=== PATIENT | male | born 1980 | race Two or more races ===

== ENCOUNTER 2019-05-01 18:33 | Inpatient (IN) | payer OTHER ==
[2019-05-01] MEDS ORDERED: SODIUM CHLORIDE 0.9% 500 ML INFUS.BAG IV ONE (19:12)
[2019-05-01] MEDS ORDERED: FOLIC ACID INJECTION - 1 MG, THIAMINE HCL 100 MG, MULTIVIT INJECTION ADULT 10 ML in SOD... IVPB ONE (19:12)
[2019-05-01] MEDS ORDERED: chlordiazePOXIDE HCL 25 MG CAPSULE PO ONE ×2 (19:17→21:14)
--- NOTE | 2019-05-01 19:17 | PDOC ---
History of Present Illness - General Chief Complaint: Alcohol intoxication Stated Complaint: FOR DETOX Time Seen by Provider: 05/01/19 19:08 History Source: Patient Exam Limitations: No Limitations - History of Present Illness Initial Comments: Anjum Ponce is a 38 yo M who denies having any pmh presents to the ER stating he has been drinking too much alcohol recently and wants to be admitted to a de-tox center. The patient states he has recently gone on a judge over the past month and now it has become too much to handle. He reports drinking around two 750 Ml bottles of tequila daily. The patient states he has had multiple withdrawal episodes in the past but he denies any seizures, hallucinations, or delerium tremens. Patient is alert and oriented x3. He denies having a headache. Denies light appearing too bright, or seeing different colors or visual hallucinations. Denies hypersensitivity to sounds, denies auditory hallucinations. Denies itching, pins and needles, abnormal sensations, burning/numbness, or bugs crawling under skin. Denies being agitated. Patient endorses feeling increased anxiety for past 2 days. Patient endorses significant bouts of sweats all over including forehead. Patient states his hands and lips are shaking more than normal. Patient endorses significant nausea but no emesis. PCP: Dr. Bojorquez at [facility] Hx: Drinks around 1.5 L of tequila daily. Smokes occasional cigarettes and marijuana. PSH: None reported Allergies: NKA, NKDA Past History - Past Medical History Allergies/Adverse Reactions: Allergies Allergy/AdvReac Type Severity Reaction Status Date / Time No Known Allergies Allergy Verified 05/01/19 18:59 COPD: No - Suicide/Smoking/Psychosocial Hx Smoking History: Current every day smoker Have you smoked in the past 12 months: Yes Number of Cigarettes Smoked Daily: 20 Information on smoking cessation initiated: No Hx Alcohol Use: Yes Drug/Substance Use Hx: No Review of Systems - Review of Systems Able to Perform ROS?: Yes Comments:: CONSTITUTIONAL: Absent: fever, no chills, no fatigue EYES: Absent: visual changes ENT: Absent: ear pain, no sore throat CARDIOVASCULAR: Absent: chest pain, no palpitations RESPIRATORY: Absent: cough, no SOB GI: Present: Nausea Absent: abdominal pain, no vomiting, no constipation, no diarrhea GENITOURINARY: Absent: dysuria, no frequency, no hematuria MUSKULOSKELETAL: Absent: back pain, no arthralgia, no myalgia SKIN: Absent: rash NEURO: Absent: headache *Physical Exam - Vital Signs Last Vital Signs Temp Pulse Resp BP Pulse Ox 98.6 F 115 H 20 138/93 93 L 05/01/19 18:59 05/01/19 18:59 05/01/19 18:59 05/01/19 18:59 05/01/19 18:59 - Physical Exam Comments: GENERAL: Well-appearing, well-nourished. Mild distress. HEENT: Mild tongue fasciculations. Normocephalic, atraumatic. PERRL, EOM intact. CARDIOVASCULAR: Tachycardic rate. Normal S1, S2. Regular rhythm. PULMONARY: No evidence of respiratory distress. Lungs clear to auscultation bilaterally. No wheezing, rales or rhonchi. ABDOMEN: Soft, non-distended, non-tender. EXTREMITIES: Normal ROM in all four extremities. No gross deformities. SKIN: Warm, diaphoretic. No rash NEUROLOGICAL: Alert, awake, appropriate. Cranial nerves 2-12 intact. No deficits to light touch in face, upper extremities and lower extremities. No motor deficits in the in face, upper extremities and lower extremities. Normal speech. Gait is normal without ataxia. ED Treatment Course - LABORATORY CBC & Chemistry Diagram: 05/02/19 07:40 05/02/19 07:40 - RADIOLOGY Radiograph Interpretation: RUQ US: HISTORY PROVIDED: Rule out fatty liver. Real time examination of the abdomen demonstrates the following: The gallbladder is normal in size and free of calculi with no evidence of intra or extrahepatic biliary duct dilatation. There is a 5 mm polyp adherent to the gallbladder wall. The liver is slightly enlarged measuring 18.1 cm in craniocaudad dimension. It is mildly hyperechoic in texture consistent with diffuse fatty infiltration. No discrete intrahepatic masses are identified. Hepatopedal flow is documented within the main portal vein. The pancreas is poorly visualized due to overlying bowel gas. There is no evidence of hydronephrosis or acute abnormalities of the right kidney. There is no evidence of AAA. The IVC is patent. IMPRESSION: Gallbladder polyp and mild diffuse fatty infiltration of the liver. Medical Decision Making - Medical Decision Making Anjum Ponce is a 38 yo M who denies having any pmh presents to the ER stating he has been drinking too much alcohol recently and wants to be admitted to a de-tox center. The patient states he has recently gone on a judge over the past month and now it has become too much to handle. He reports drinking around two 750 Ml bottles of tequila daily. The patient states he has had multiple withdrawal episodes in the past but he denies any seizures, hallucinations, or delerium tremens. Patient is alert and oriented x3. He denies having a headache. Denies light appearing too bright, or seeing different colors or visual hallucinations. Denies hypersensitivity to sounds, denies auditory hallucinations. Denies itching, pins and needles, abnormal sensations, burning/numbness, or bugs crawling under skin. Denies being agitated. Patient endorses feeling increased anxiety for past 2 days. Patient endorses significant bouts of sweats all over including forehead. Patient states his hands and lips are shaking more than normal. Patient endorses significant nausea but no emesis. Vital Signs Period Temp Pulse Resp BP Sys/Zhang Pulse Ox Last 24 Hr 98.6 F 115 20 138/93 93 - Tachycardic DDx IBNLT: Alcohol intoxication, more likely withdrawal, dehydration, hangover, electrolyte/metabolic disturbance, wernicke encephelopathy vs korsakoff Plan: Labs, Urine, IV hydration, EKG, Banana bag, Admit to hospital for withdrawal. EKG: Sinus tachycardia, rate of 101, frequent PVC's, no ST elevations or depressions, TWI in lead V2, V1, aVR. No prior for comparison. Labs: Elevated Cr suggesting GHADA, elevated LFT's, alcohol level greater than 300. Urine: Unremarkable. RUQ US: HISTORY PROVIDED: Rule out fatty liver. Real time examination of the abdomen demonstrates the following: The gallbladder is normal in size and free of calculi with no evidence of intra or extrahepatic biliary duct dilatation. There is a 5 mm polyp adherent to the gallbladder wall. The liver is slightly enlarged measuring 18.1 cm in craniocaudad dimension. It is mildly hyperechoic in texture consistent with diffuse fatty infiltration. No discrete intrahepatic masses are identified. Hepatopedal flow is documented within the main portal vein. The pancreas is poorly visualized due to overlying bowel gas. There is no evidence of hydronephrosis or acute abnormalities of the right kidney. There is no evidence of AAA. The IVC is patent. IMPRESSION: Gallbladder polyp and mild diffuse fatty infiltration of the liver. Disposition: Admit to hospital for alcohol withdrawal, GHADA, elevated LFT's. - Patient can safely be discharged and referred to [facility] after a 1-2 day hospital stay and medical clearance. *DC/Admit/Observation/Transfer Diagnosis at time of Disposition: Alcohol withdrawal, Elevated creatine kinase, Elevated LFTs, GHADA (acute kidney injury) - Discharge Dispostion Condition at time of disposition: Stable Decision to Admit order: Yes - Referrals - Patient Instructions - Post Discharge Activity CIWA Score Nausea/Vomitin-Int. Nausea w/Dry Heave Muscle Tremors: 4-Moderate,w/Arms Extend Anxiety: 4-Mod. Anxious/Guarded Agitation: 3 Paroxysmal Sweats: 4-Forehead w/Sweat Beads Orientation: 0-Oriented Tacttile Disturbances: 0-None Auditory Disturbances: 0-None Visual Disturbances: 0-None Headache: 0-None Present CIWA-Ar Total Score: 19 - Admission Criteria OASAS Guidelines: Admission for Medically Managed Detox: Requires at least one of the followin. CIWA greater than 12 2. Seizures within the past 24 hours 3. Delirium tremens within the past 24 hours 4. Hallucinations within the past 24 hours 5. Acute intervention needed for co occurring medical disorder 6. Acute intervention needed for co occurring psychiatric disorder 7. Severe withdrawal that cannot be handled at a lower level of care (continued vomiting, continued diarrhea, abnormal vital signs) requiring intravenous medication and/or fluids 8. Patient presents the following: CIWA greater than 12 Admission Criteria Met: Admission criteria met
[2019-05-01] MEDS ORDERED: chlordiazePOXIDE HCL 25 MG CAPSULE ONE ×2 (19:27→21:23)
[2019-05-01 19:33] LABS: BASO % 0.9 % (0-2.0); HEMATOCRIT 52.4 % (35.4-49); HEMOGLOBIN 17.4 GM/dL (11.7-16.9); LYMPH % 29.4 % (8-40); MCH 29.6 pg (25.7-33.7); MCHC 33.2 g/dl (32.0-35.9); MEAN CELL VOLUME 89.3 fl (80-96); MEAN PLT VOLUME 7.9 fl (7.5-11.1); MONO % 9.6 % (3.8-10.2); NEUT % 55.1 % (42.8-82.8); PLATELET COUNT 268 K/MM3 (134-434); RBC 5.87 M/mm3 (4.00-5.60); WHITE BLOOD COUNT 5.9 K/mm3 (4.0-10.0)
[2019-05-01 19:59] LABS: ALBUMIN 4.3 g/dl (3.4-5.0); BILIRUBIN,TOTAL 1.2 mg/dL (0.2-1); BLOOD UREA NITROGEN 8.8 mg/dL (7-18); CALCIUM 8.8 mg/dL (8.5-10.1); CREATININE 1.4 mg/dL (0.55-1.3); POTASSIUM 4.6 mmol/L (3.5-5.1); TOT PROT 7.7 g/dl (6.4-8.2)
--- NOTE | 2019-05-01 20:27 | PDOC ---
Documentation entered by Sarita Valencia SCRIBE, acting as scribe for Marina Gibbs MD. Marina Gibbs MD: This documentation has been prepared by the wendyibe, Sarita Valencia SCRIBE, under my direction and personally reviewed by me in its entirety. I confirm that the documentation accurately reflects all work, treatment, procedures, and medical decision making performed by me. Attending Attestation - Resident Resident Name: Robert Drake - ED Attending Attestation I have performed the following: I have examined & evaluated the patient, The case was reviewed & discussed with the resident, I agree w/resident's findings & plan, Exceptions are as noted - HPI HPI: 05/01/19 20:26 The patient is a 38-year-old male with no reported past medical history presents to the emergency department accompanied with friends complaining of alcohol intoxication seeking detox and dehydration. History obtained by friends and the patient. The patient and his friends went on a trip during the April 22 weekend to [place]. The friends state starting April 24, and hes been consuming a little over 1L of alcohol. The patient reports he had the same amount of alcohol today. The patient reports prior to April 24, his last drink was about 8 months ago. The patient denies prior detox admissions. The patient reports an additional complaint of dehydration and chest pain. Denies shortness of breath. The patient denies the use of marijuana or other drugs, however to Dr. Drake the patient reported prior use of marijuana. - Physicial Exam PE: 05/01/19 20:15 GENERAL: Awake, alert and oriented. The patient is in no acute distress. ENT: Ears normal, nares patent, oropharynx clear without exudates. +dry mucous membranes. NECK: Normal range of motion, supple, no nuchal rigidity LUNGS: Breath sounds equal, clear to auscultation bilaterally. No wheezes, and no crackles. HEART: +tachycardia. Regular rhythm, normal S1 and S2 without murmurs, rubs or gallops. ABDOMEN: Soft, nontender, normoactive bowel sounds. No guarding, no rebound. No masses palpable. EXTREMITIES: No lower extremity edema. Normal range of motion, no edema. NEUROLOGICAL: No ataxia, no slurred speech. Answering all questions. Cranial nerves II through XII grossly intact. Normal speech. No focal neurological deficits. SKIN: Warm, Dry, normal turgor, no rashes or lesions noted. - Medical Decision Making 05/01/19 20:16 Mr. Ponce is a 38 yo M who presents to the ER with friends due to alcohol intoxication The patient reports to me that he began drinking since he went on a "guys trip" to [place] (April 24 through April 27) He has had 1 L of various types of alcohol daily Upon returning from his trip, the patient states that he had continued to drink this way He denies drug or marijuanna use to me To Dr Henson, he states that he has been drinking heavily for the past 2 months , smoking cigarettes and using Marijuanna The patient state he is here for hydration His friends would like him to go to Detox Pt denies seizures or tremulousness if he does not drink Has "blacked out" while drinking He denies vomiting, diarrhea On exam Pt is tremulous, awake and alert, answering my questions appropriately RRR CTA No abdominal tenderness EKG: ST rate of 101 bpm, axis nml, intervals nml, (+) PVCs Will hydrate/Librium Will replete electrolytes Will re assess 05/01/19 20:31 Laboratory Tests 05/01/19 05/01/19 05/01/19 19:20 19:20 19:20 WBC 5.9 Hgb 17.4 H Hct 52.4 H Plt Count 268 BUN 8.8 Creatinine 1.4 H Total Bilirubin 1.2 H AST 322 H ALT 242 H Salicylates < 1.7 L Acetaminophen < 2.0 L Alcohol, Quantitative 322.4 H 05/01/19 22:01 Pt presents to the ER s/p binge drinking Tremulous when first examined (alcohol level 322!) Will admit Call placed to Hospitalist clinical impression: binge drinking, initial presentation early alcohol withdrawal, initial presentation
[2019-05-01 20:37] LABS: INR 0.99 (0.83-1.09); PROTHROMBIN TIME (PATIENT) 11.7 SEC (9.7-13.0)
[2019-05-01 20:53] LABS: EPI CELLS 0.4 /HPF (0-5/HPF); HYALINE CASTS 1 /lpf (0-8); URINE APPEARANCE CLEAR; URINE BACTERIA 0.7 /hpf (NEGATIVE); URINE BILIRUBIN NEGATIVE (NEGATIVE); URINE COLOR YELLOW; URINE GLUCOSE (UA) NEGATIVE (NEGATIVE); URINE KETONE NEGATIVE (NEGATIVE); URINE LEUK ESTERASE NEGATIVE (NEGATIVE); URINE NITRITE NEGATIVE (NEGATIVE); URINE PROTEIN TRACE (NEGATIVE); URINE RBC 1 /hpf (0-4); URINE WBC 1 /hpf (0-5)
[2019-05-01 21:02] LABS: COCAINE, UR NEGATIVE ng/ml (CUTOFF=300); METHADONE, UR NEGATIVE ng/ml (CUTOFF=300); OPIATES, URI NEGATIVE ng/ml (CUTOFF=300); PHENCYCLIDINE,URINE NEGATIVE ng/ml (CUTOFF=25); URINE AMPHETAMINES NEGATIVE ng/ml (CUTOFF=500); URINE BARBITURATES NEGATIVE ng/ml (CUTOFF=200); URINE BENZODIAZEPINES NEGATIVE ng/ml (CUTOFF=200)
[2019-05-01] MEDS ORDERED: LORazepam 2 MG/ML SDV VIAL ONE (21:23)
--- NOTE | 2019-05-01 22:48 | PN ---
Teaching Attending Note ATTENDING PHYSICIAN STATEMENT I saw and evaluated the patient. I reviewed the resident's note and discussed the case with the resident. I agree with the resident's findings and plan as documented. SUBJECTIVE: OBJECTIVE: ASSESSMENT AND PLAN:
--- NOTE | 2019-05-01 22:55 | PN ---
Teaching Attending Note Name of Resident: Danna Chinchilla ATTENDING PHYSICIAN STATEMENT I saw and evaluated the patient. I reviewed the resident's note and discussed the case with the resident. I agree with the resident's findings and plan as documented. Patient with a history of alcohol abuse presents to the ER for detox; hasn't had seizures or been intubated but has been in WD. Last drink earlier with + EtOH. Please see resident note for further historical information VS noted per chart NAD, AAO, resting in bed. CIWA <7 NC AT EOMI PERRLA Tachycardic, s1/2 Lungs CTAB, w/ sym exp NT ND +BS CN2-12 wnl, no fnd Normal mood, appropriate behavior EKG reviewed US abd prelim shows mild prominence of liver with normal CBD and no other acute issues. GB polyp that should undergo routine surveilance. Awaiting final read. ASSESSMENT AND PLAN: Patient presents with EtOH WD and Alcoholic Hepatitis; he has a negative RUQ US and a CIWA of ~10. Is is also found to have an GHADA and appears dehydrated # EtOH WD # Alcoholic Hepatitis # GHADA # Alcohol abuse # Elevated H/H # Mild peripheral eosinophilia Admit to medicine; hydrate with isotonic fluids and placing on Ativan CIWA schedule. He is high risk of severe WD. Thiamine and folate continued. For EtOH hepatitis trend CMP. [facility] doesn't endorse need for steroids. Advise EtOH cessasion and detox referral He appears dehydrated on his labs; if GHADA resolved would be prerenal. If not get FeNa and nephro consult. Monitor BMP and UOP. Recheck H/H in AM. Fall precautions
[2019-05-01] MEDS ORDERED: LORazepam 2 MG/ML SDV VIAL IVPUSH PRN ×2 (23:01)
[2019-05-02 00:09] VITALS: BMI 33.7
[2019-05-02] MEDS ORDERED: MELATONIN 5 MG TABLETS PO ONE (00:15)
--- NOTE | 2019-05-02 01:19 | HP ---
CHIEF COMPLAINT: Detox from alcohol PCP: Dr. Bojorquez HISTORY OF PRESENT ILLNESS: Anjum Ponce is a 38 year old male with PMH of ethanol abuse who presents to the ED after a 7-day alcohol binge, requesting to be admitted to a [facility]. Pt has drank about 1 L of alcohol (vodka, tequila, or rum) a day for the last week. He denies use of any other substances. His friends became concerned about his drinking and encouraged him to come to the hospital for detox. His last alcoholic drink was several hours prior to arrival. He endorses mild jitters and feeling tired and nauseous (but no vomiting). He denies headache, hallucinations, abnormal sensations or hypersensitivity to light or sounds, numbness, itching, or any feelings of agitation. Pt states that he has had withdrawal episodes before, but denies any seizures, hallucinations, or delerium tremens. He reports one instance where he went to the hospital for withdrawal and only received hydration and "some medication". Pt denies any hx of anxiety, depression or any recent stress. He has alcohol "benders" like this about once a year. Otherwise, he denies drinking alcohol on a regular basis. ER course was notable for: (1) EKG: no ST elevations or depressions (2) Elevated Cr and LFTs (3) Alcohol level: 322.4 Recent Travel: PAST MEDICAL HISTORY: PAST SURGICAL HISTORY: Social History: Smoking: few cigarettes a week Alcohol: alcohol binges once a year Drugs: denies Family History: denies Allergies No Known Allergies Allergy (Verified 05/01/19 18:59) HOME MEDICATIONS: REVIEW OF SYSTEMS CONSTITUTIONAL: malaise and jittery Absent: fever, chills, diaphoresis, generalized weakness, loss of appetite, weight change HEENT: Absent: rhinorrhea, nasal congestion, throat pain, throat swelling, difficulty swallowing, mouth swelling, ear pain, eye pain, visual changes CARDIOVASCULAR: Absent: chest pain, syncope, palpitations, irregular heart rate, lightheadedness, peripheral edema RESPIRATORY: Absent: cough, shortness of breath, dyspnea with exertion, orthopnea, wheezing, stridor, hemoptysis GASTROINTESTINAL: nausea Absent: abdominal pain, abdominal distension, vomiting, diarrhea, constipation, melena, hematochezia GENITOURINARY: Absent: dysuria, frequency, urgency, hesitancy, hematuria, flank pain, genital pain MUSCULOSKELETAL: Absent: myalgia, arthralgia, joint swelling, back pain, neck pain SKIN: Absent: rash, itching, pallor HEMATOLOGIC/IMMUNOLOGIC: Absent: easy bleeding, easy bruising, lymphadenopathy, frequent infections ENDOCRINE: Absent: unexplained weight gain, unexplained weight loss, heat intolerance, cold intolerance NEUROLOGIC: Absent: headache, focal weakness or paresthesias, dizziness, unsteady gait, seizure, mental status changes, bladder or bowel incontinence PSYCHIATRIC: Absent: anxiety, depression, suicidal or homicidal ideation, hallucinations. PHYSICAL EXAMINATION Vital Signs - 24 hr 05/01/19 05/01/19 05/01/19 18:59 20:47 23:57 Temperature 98.6 F 98.7 F Pulse Rate 115 H 98 H Pulse Rate [ 100 H Right Radial] Respiratory 20 18 18 Rate Blood Pressure 138/93 142/81 Blood Pressure 112/88 [Right Arm] O2 Sat by Pulse 93 L 94 L 98 Oximetry (%) GENERAL: Awake, alert, and fully oriented, in no acute distress. Mild jitteriness. HEAD: Normal with no signs of trauma. EYES: Pupils equal, round and reactive to light, extraocular movements intact, sclera anicteric, conjunctiva clear. No lid lag. EARS, NOSE, THROAT: Ears normal, nares patent, oropharynx clear without exudates. Moist mucous membranes. NECK: Normal range of motion, supple without lymphadenopathy, JVD, or masses. LUNGS: Breath sounds equal, clear to auscultation bilaterally. No wheezes, and no crackles. No accessory muscle use. HEART: Regular rate and rhythm, normal S1 and S2 without murmur, rub or gallop. ABDOMEN: Soft, nontender, not distended, normoactive bowel sounds, no guarding, no rebound, no masses. No hepatomegaly or splenomegaly. Neg Slater's sign MUSCULOSKELETAL: Normal range of motion at all joints. No bony deformities or tenderness. No CVA tenderness. UPPER EXTREMITIES: 2+ pulses, warm, well-perfused. No cyanosis. No clubbing. No peripheral edema. LOWER EXTREMITIES: 2+ pulses, warm, well-perfused. No calf tenderness. No peripheral edema. NEUROLOGICAL: Cranial nerves II-XII intact. Normal speech. Normal gait. PSYCHIATRIC: Cooperative. Good eye contact. Appropriate mood and affect. SKIN: Warm, dry, normal turgor, no rashes or lesions noted, normal capillary refill. Laboratory Results - last 24 hr 05/01/19 05/01/19 05/01/19 19:20 19:20 19:20 WBC 5.9 RBC 5.87 H Hgb 17.4 H Hct 52.4 H MCV 89.3 MCH 29.6 MCHC 33.2 RDW 14.0 Plt Count 268 MPV 7.9 Absolute Neuts (auto) 3.2 Neutrophils % 55.1 Lymphocytes % 29.4 Monocytes % 9.6 Eosinophils % 5.0 H Basophils % 0.9 Nucleated RBC % 0 PT with INR 11.70 INR 0.99 Sodium 140 Potassium 4.6 Chloride 105 Carbon Dioxide 29 Anion Gap 6 L BUN 8.8 Creatinine 1.4 H Est GFR (CKD-EPI)AfAm 73.86 Est GFR (CKD-EPI)NonAf 63.73 Random Glucose 110 H Calcium 8.8 Total Bilirubin 1.2 H AST 322 H ALT 242 H Alkaline Phosphatase 76 Total Protein 7.7 Albumin 4.3 Urine Color Urine Appearance Urine pH Ur Specific [place] Urine Protein Urine Glucose (UA) Urine Ketones Urine Blood Urine Nitrite Urine Bilirubin Urine Urobilinogen Ur Leukocyte Esterase Urine WBC (Auto) Urine RBC (Auto) Urine Casts (Auto) U Epithel Cells (Auto) Urine Bacteria (Auto) Salicylates Opiates Screen Methadone Screen Acetaminophen Barbiturate Screen Phencyclidine Screen Ur Amphetamines Screen MDMA (Ecstasy) Screen Benzodiazepines Screen Cocaine Screen U Marijuana (THC) Screen Alcohol, Quantitative 05/01/19 05/01/19 05/01/19 19:20 20:45 20:45 WBC RBC Hgb Hct MCV MCH MCHC RDW Plt Count MPV Absolute Neuts (auto) Neutrophils % Lymphocytes % Monocytes % Eosinophils % Basophils % Nucleated RBC % PT with INR INR Sodium Potassium Chloride Carbon Dioxide Anion Gap BUN Creatinine Est GFR (CKD-EPI)AfAm Est GFR (CKD-EPI)NonAf Random Glucose Calcium Total Bilirubin AST ALT Alkaline Phosphatase Total Protein Albumin Urine Color Yellow Urine Appearance Clear Urine pH 7.0 Ur Specific [place] 1.010 Urine Protein Trace Urine Glucose (UA) Negative Urine Ketones Negative Urine Blood 1+ H Urine Nitrite Negative Urine Bilirubin Negative Urine Urobilinogen 1.0 Ur Leukocyte Esterase Negative Urine WBC (Auto) 1 Urine RBC (Auto) 1 Urine Casts (Auto) 1 U Epithel Cells (Auto) 0.4 Urine Bacteria (Auto) 0.7 Salicylates < 1.7 L Opiates Screen Negative Methadone Screen Negative Acetaminophen < 2.0 L Barbiturate Screen Negative Phencyclidine Screen Negative Ur Amphetamines Screen Negative MDMA (Ecstasy) Screen Negative Benzodiazepines Screen Negative Cocaine Screen Negative U Marijuana (THC) Screen Negative Alcohol, Quantitative 322.4 H ASSESSMENT/PLAN: Pt is a 38 year old M with a PMH of ethanol abuse who is admitted for alcohol detox. #Alcohol withdrawal Placed on Ativan CIWA protocol Give thiamine and folate Hydrate with isotonic fluids #Alcoholic hepatitis [facility] doesn't endorse need for steroids RUQ showed no acute pathology Lipase to r/o pancreatitis Trend CMP Advise alcohol cessation and a detox referral #Elevated Cr suggesting GHADA Likely prerenal from dehydration and alcohol consumption Hydrate with isotonic fluids If BMP not improved, get FeNa and nephro consult #Elevated H&H Also likely due to dehydration Recheck in am #FEN IV LR @ 100 ml/hr Regular diet as tolerated #DVT ppx SCDs and early ambulation Visit type - Emergency Visit Emergency Visit: Yes ED Registration Date: 05/01/19 Care time: The patient presented to the Emergency Department on the above date and was hospitalized for further evaluation of their emergent condition. - New Patient This patient is new to me today: Yes Date on this admission: 05/02/19 - Critical Care Critical Care patient: No ATTENDING PHYSICIAN STATEMENT I saw and evaluated the patient. I reviewed the resident's note and discussed the case with the resident. I agree with the resident's findings and plan as documented. SUBJECTIVE: OBJECTIVE: ASSESSMENT AND PLAN:
[2019-05-02] MEDS ORDERED: LORazepam 2 MG/ML SDV VIAL IVPUSH ONE (03:10)
[2019-05-02] MEDS: LACTATED RINGERS SOLUTION 1,000 ML/1,000 ML INFUS.BAG IV SCH ×2 (04:05→14:15)
[2019-05-02] MEDS ORDERED: HEPARIN NA (PORCINE) 5,000 UNITS/ML 1ML VIAL SQ SCH (06:00)
[2019-05-02] MEDS ORDERED: ONDANSETRON 4 MG TABLET PO ONE ×2 (06:01→06:25)
[2019-05-02 08:47] LABS: BASO % 1.1 % (0-2.0); EOS % 5.4 % (0-4.5); HEMATOCRIT 46.9 % (35.4-49); HEMOGLOBIN 15.5 GM/dL (11.7-16.9); LYMPH % 30.2 % (8-40); MCH 29.9 pg (25.7-33.7); MEAN CELL VOLUME 90.6 fl (80-96); MEAN PLT VOLUME 8.2 fl (7.5-11.1); MONO % 9.4 % (3.8-10.2); NEUT % 53.9 % (42.8-82.8); RBC 5.18 M/mm3 (4.00-5.60); RDW 14.3 % (11.9-15.9); WHITE BLOOD COUNT 5.2 K/mm3 (4.0-10.0)
--- NOTE | 2019-05-02 08:53 | EKG ---
Test Reason : Blood Pressure : / mmHG Vent. Rate : 101 BPM Atrial Rate : 101 BPM P-R Int : 142 ms QRS Dur : 094 ms QT Int : 336 ms P-R-T Axes : 060 055 061 degrees QTc Int : 435 ms SINUS TACHYCARDIA WITH FREQUENT PREMATURE VENTRICULAR COMPLEXES OTHERWISE NORMAL ECG NO PREVIOUS ECGS AVAILABLE Confirmed by FREDDIE LEBLANC, ABHINAV ([id number]) on 05/02/2019 8:52:56 AM Referred By: Confirmed By:ABHINAV FRAZIER MD
[2019-05-02 09:17] LABS: ALBUMIN 3.4 g/dl (3.4-5.0); BLOOD UREA NITROGEN 9.8 mg/dL (7-18); CALCIUM 8.4 mg/dL (8.5-10.1); CREATININE 1.1 mg/dL (0.55-1.3); MAGNESIUM 2.1 mg/dL (1.8-2.4); POTASSIUM 4.1 mmol/L (3.5-5.1); TOT PROT 6.2 g/dl (6.4-8.2)
[2019-05-02 09:21] LABS: PLATELET COUNT 199 K/MM3 (134-434)
[2019-05-02] MEDS ORDERED: PNEUMOC 13-VAL CONJ-DIP CRM/PF 0.5 ML DISP.SYRIN IM ONE (10:00)
[2019-05-02] MEDS: FOLIC ACID 1 MG TABLET (FP) PO SCH (10:07)
[2019-05-02] MEDS: THIAMINE HCL 100 MG TABLET (FP) PO SCH (10:08)
[2019-05-02] MEDS ORDERED: chlordiazePOXIDE 5 MG CAPSULE PO PRN (13:26)
[2019-05-02] MEDS ORDERED: chlordiazePOXIDE HCL 25 MG CAPSULE PO ONE (13:29)
--- NOTE | 2019-05-02 13:29 | PN ---
Progress Note (short form) - Note Progress Note: Subjective: no fever or chills, no ABd pain. no MERIDA , no N/V, feels shaky Object Vital Signs: Last Vital Signs Temp Pulse Resp BP Pulse Ox 98.8 F 116 H 20 140/110 H 95 05/02/19 09:30 05/02/19 09:30 05/02/19 09:30 05/02/19 09:30 05/02/19 09:00 Laboratory Results - last 24 hr 05/01/19 05/01/19 05/01/19 19:20 19:20 19:20 WBC 5.9 RBC 5.87 H Hgb 17.4 H Hct 52.4 H MCV 89.3 MCH 29.6 MCHC 33.2 RDW 14.0 Plt Count 268 MPV 7.9 Absolute Neuts (auto) 3.2 Neutrophils % 55.1 Lymphocytes % 29.4 Monocytes % 9.6 Eosinophils % 5.0 H Basophils % 0.9 Nucleated RBC % 0 PT with INR 11.70 INR 0.99 Sodium 140 Potassium 4.6 Chloride 105 Carbon Dioxide 29 Anion Gap 6 L BUN 8.8 Creatinine 1.4 H Est GFR (CKD-EPI)AfAm 73.86 Est GFR (CKD-EPI)NonAf 63.73 Random Glucose 110 H Calcium 8.8 Magnesium Total Bilirubin 1.2 H AST 322 H ALT 242 H Alkaline Phosphatase 76 Total Protein 7.7 Albumin 4.3 Lipase TSH Urine Color Urine Appearance Urine pH Ur Specific [place] Urine Protein Urine Glucose (UA) Urine Ketones Urine Blood Urine Nitrite Urine Bilirubin Urine Urobilinogen Ur Leukocyte Esterase Urine WBC (Auto) Urine RBC (Auto) Urine Casts (Auto) U Epithel Cells (Auto) Urine Bacteria (Auto) Salicylates Opiates Screen Methadone Screen Acetaminophen Barbiturate Screen Phencyclidine Screen Ur Amphetamines Screen MDMA (Ecstasy) Screen Benzodiazepines Screen Cocaine Screen U Marijuana (THC) Screen Alcohol, Quantitative 05/01/19 05/01/19 05/01/19 19:20 20:45 20:45 WBC RBC Hgb Hct MCV MCH MCHC RDW Plt Count MPV Absolute Neuts (auto) Neutrophils % Lymphocytes % Monocytes % Eosinophils % Basophils % Nucleated RBC % PT with INR INR Sodium Potassium Chloride Carbon Dioxide Anion Gap BUN Creatinine Est GFR (CKD-EPI)AfAm Est GFR (CKD-EPI)NonAf Random Glucose Calcium Magnesium Total Bilirubin AST ALT Alkaline Phosphatase Total Protein Albumin Lipase TSH Urine Color Yellow Urine Appearance Clear Urine pH 7.0 Ur Specific [place] 1.010 Urine Protein Trace Urine Glucose (UA) Negative Urine Ketones Negative Urine Blood 1+ H Urine Nitrite Negative Urine Bilirubin Negative Urine Urobilinogen 1.0 Ur Leukocyte Esterase Negative Urine WBC (Auto) 1 Urine RBC (Auto) 1 Urine Casts (Auto) 1 U Epithel Cells (Auto) 0.4 Urine Bacteria (Auto) 0.7 Salicylates < 1.7 L Opiates Screen Negative Methadone Screen Negative Acetaminophen < 2.0 L Barbiturate Screen Negative Phencyclidine Screen Negative Ur Amphetamines Screen Negative MDMA (Ecstasy) Screen Negative Benzodiazepines Screen Negative Cocaine Screen Negative U Marijuana (THC) Screen Negative Alcohol, Quantitative 322.4 H 05/02/19 05/02/19 07:40 07:40 WBC 5.2 RBC 5.18 Hgb 15.5 Hct 46.9 MCV 90.6 MCH 29.9 MCHC 33.0 RDW 14.3 Plt Count 199 D MPV 8.2 Absolute Neuts (auto) 2.8 Neutrophils % 53.9 Lymphocytes % 30.2 Monocytes % 9.4 Eosinophils % 5.4 H Basophils % 1.1 Nucleated RBC % 0 PT with INR INR Sodium 141 Potassium 4.1 Chloride 106 Carbon Dioxide 28 Anion Gap 7 L BUN 9.8 Creatinine 1.1 Est GFR (CKD-EPI)AfAm 98.87 Est GFR (CKD-EPI)NonAf 85.31 Random Glucose 86 Calcium 8.4 L Magnesium 2.1 Total Bilirubin 1.0 AST 227 H ALT 198 H Alkaline Phosphatase 65 Total Protein 6.2 L Albumin 3.4 Lipase 154 TSH 1.18 Urine Color Urine Appearance Urine pH Ur Specific [place] Urine Protein Urine Glucose (UA) Urine Ketones Urine Blood Urine Nitrite Urine Bilirubin Urine Urobilinogen Ur Leukocyte Esterase Urine WBC (Auto) Urine RBC (Auto) Urine Casts (Auto) U Epithel Cells (Auto) Urine Bacteria (Auto) Salicylates Opiates Screen Methadone Screen Acetaminophen Barbiturate Screen Phencyclidine Screen Ur Amphetamines Screen MDMA (Ecstasy) Screen Benzodiazepines Screen Cocaine Screen U Marijuana (THC) Screen Alcohol, Quantitative Physical Exam: NAD, looks anxious . dry MM CV: RRR, 2/6 [place] with no radiation Lungs: CTAB Ext : tremor in hands. no edma on LE Abd: soft, NT, ND , NL BS. Assessment/Plan: 38 y/o man with h/o binge drinking who presented with fatigue after binge drinking. he was found in ETOH withdrawal 1- ETOH withdrawal: - change PRN ativan to Librium - no signs of Wernicke's . received thiamine IV in ER - cont folic and thiamine - check Phos level 2- Alcoholic hepatitis: - DF -.2 . No indication of steroids use - US reviewed. 3- GHADA : improved. - cont IVF as he contiues to ook volume depleted DVT PX HLOC. he agreed to stay Visit type - Emergency Visit Emergency Visit: Yes ED Registration Date: 05/01/19 Care time: The patient presented to the Emergency Department on the above date and was hospitalized for further evaluation of their emergent condition. - New Patient This patient is new to me today: Yes Date on this admission: 05/02/19 - Critical Care Critical Care patient: No
[2019-05-02] MEDS: chlordiazePOXIDE HCL 25 MG CAPSULE PO SCH (21:08)
[2019-05-02] MEDS ORDERED: PT OWN MED DRAWER 7, Y5N ONE (21:40)
[2019-05-03] MEDS: LACTATED RINGERS SOLUTION 1,000 ML/1,000 ML INFUS.BAG IV SCH (03:15)
[2019-05-03] MEDS: chlordiazePOXIDE HCL 25 MG CAPSULE PO SCH ×3 (05:07→20:51)
[2019-05-03 09:49] LABS: ALBUMIN 3.3 g/dl (3.4-5.0); BILIRUBIN,TOTAL 1.7 mg/dL (0.2-1); BLOOD UREA NITROGEN 9.2 mg/dL (7-18); CALCIUM 8.9 mg/dL (8.5-10.1); CREATININE 1.1 mg/dL (0.55-1.3); PHOSPHOROUS 4.2 mg/dL (2.5-4.9); POTASSIUM 3.9 mmol/L (3.5-5.1); TOT PROT 6.1 g/dl (6.4-8.2)
[2019-05-03] MEDS: FOLIC ACID 1 MG TABLET (FP) PO SCH (10:30)
[2019-05-03] MEDS: THIAMINE HCL 100 MG TABLET (FP) PO SCH (10:30)
--- NOTE | 2019-05-03 16:39 | PN ---
Teaching Attending Note Name of Resident: Toi Lockett ATTENDING PHYSICIAN STATEMENT I saw and evaluated the patient. I reviewed the resident's note and discussed the case with the resident. I agree with the resident's findings and plan as documented. SUBJECTIVE: No fever or chills. No MERIDA. feels better . No Abd pain OBJECTIVE: NAD. MMM CV: RRR, 2/[place] with [place] Lungs: CTAB Ext : No edema, no tremors Abd: soft, NT, ND , NL BS. Assessment/Plan: 38 y/o man with h/o binge drinking who presented with fatigue after binge drinking. he was found in ETOH withdrawal 1- ETOH withdrawal: -cont librium - cont folic and thiamine 2- Alcoholic hepatitis: LFTS improved 3- GHADA : resolved - dc IVF DVT PX dispo : He declined transfer to [facility].
--- NOTE | 2019-05-03 17:50 | PN ---
Physical Exam: SUBJECTIVE: Patient seen and examined by the bedside. OBJECTIVE: Vital Signs Period Temp Pulse Resp BP Sys/Zhang Pulse Ox Last 24 Hr 97.7 F-98.4 F 64-74 18-20 138-156/70-97 95-98 GENERAL: The patient is awake, alert, and fully oriented, in no acute distress. HEAD: Normal with no signs of trauma. EYES: PERRL, extraocular movements intact, sclera anicteric, conjunctiva clear. No ptosis. NECK: Trachea midline, full range of motion, supple. LUNGS: Breath sounds equal, clear to auscultation bilaterally, no wheezes, no crackles, no accessory muscle use. HEART: Regular rate and rhythm, S1, S2 without murmur, rub or gallop. ABDOMEN: Soft, nontender, nondistended, normoactive bowel sounds, no guarding, no rebound, no hepatosplenomegaly, no masses. EXTREMITIES: 2+ pulses, warm, well-perfused, no edema. PSYCH: Normal mood, normal affect. SKIN: Warm, dry, normal turgor, no rashes or lesions noted Laboratory Results - last 24 hr 05/03/19 07:35 Sodium 141 Potassium 3.9 Chloride 106 Carbon Dioxide 28 Anion Gap 7 L BUN 9.2 Creatinine 1.1 Est GFR (CKD-EPI)AfAm 98.87 Est GFR (CKD-EPI)NonAf 85.31 Random Glucose 81 Calcium 8.9 Phosphorus 4.2 Total Bilirubin 1.7 H AST 159 H ALT 184 H Alkaline Phosphatase 60 Total Protein 6.1 L Albumin 3.3 L Active Medications Generic Name Dose Route Start Last Admin Trade Name Freq PRN Reason Stop Dose Admin Chlordiazepoxide HCl 10 mg 05/05/19 00:00 Librium - PO 05/05/19 23:59 Q12H PRN Signs/symptoms of Withdrawal Chlordiazepoxide HCl 10 mg 05/02/19 13:26 Librium - PO 05/04/19 23:59 Q8H PRN Signs/symptoms of Withdrawal Chlordiazepoxide HCl 25 mg 05/02/19 21:00 05/03/19 12:08 Librium - PO 05/04/19 05:01 25 mg Q8H DAVID Administration Chlordiazepoxide HCl 15 mg 05/04/19 13:00 Librium - PO 05/05/19 05:01 Q8H DAVID Chlordiazepoxide HCl 10 mg 05/05/19 13:00 Librium - PO 05/06/19 05:01 Q8H DAVID Chlordiazepoxide HCl 10 mg 05/06/19 13:00 Librium - PO 05/06/19 13:01 ONCE ONE Folic Acid 1 mg 05/02/19 10:00 05/03/19 10:30 Folic Acid - PO 1 mg DAILY DAVID Administration Pneumococcal 13-Valent Conj Vacc 0.5 ml 05/02/19 10:00 Prevnar 13 Syringe - IM 05/02/19 10:01 .ONCE ONE Thiamine HCl 100 mg 05/02/19 10:00 05/03/19 10:30 Vitamin B1 - PO 100 mg DAILY DAVID Administration CBC, BMP 05/02/19 07:40 05/03/19 07:35 Current Medications Chlordiazepoxide HCl (Librium -) 10 mg PO Q12H PRN Chlordiazepoxide HCl (Librium -) 10 mg PO Q8H PRN Chlordiazepoxide HCl (Librium -) 25 mg PO Q8H DAVID Chlordiazepoxide HCl (Librium -) 15 mg PO Q8H DAVID Chlordiazepoxide HCl (Librium -) 10 mg PO Q8H DAVID Chlordiazepoxide HCl (Librium -) 10 mg PO ONCE ONE Folic Acid (Folic Acid -) 1 mg PO DAILY [facility] Pneumococcal 13-Valent Conj Vacc (Prevnar 13 Syringe -) 0.5 ml IM .ONCE ONE Thiamine HCl (Vitamin B1 -) 100 mg PO DAILY [facility] ASSESSMENT/PLAN: 38 year old male with PMH of etoh abuse presents to the ED with complaints feeling jittery and nauseated after consuming 1 liter of alcohol per day for the past 7 days. # ETOH withdrawal: -Librium protocol started (05/02), continue till -Folic acid, Thiamine started -Transfer to [facility] discussed, patient not interested # Alcoholic hepatitis: -AST: 322 to 159 -ALT 242 to 184 #Dehydration: - Ringers Lactate administered, now stopped Visit type - Emergency Visit Emergency Visit: Yes ED Registration Date: 05/01/19 Care time: The patient presented to the Emergency Department on the above date and was hospitalized for further evaluation of their emergent condition. - New Patient This patient is new to me today: Yes Date on this admission: 05/03/19 - Critical Care Critical Care patient: No - Discharge Referral Referred to [facility] Med P.C.: No ATTENDING PHYSICIAN STATEMENT I saw and evaluated the patient. I reviewed the resident's note and discussed the case with the resident. I agree with the resident's findings and plan as documented. SUBJECTIVE: OBJECTIVE: ASSESSMENT AND PLAN:
[2019-05-04] MEDS: chlordiazePOXIDE HCL 25 MG CAPSULE PO SCH (05:34)
[2019-05-04 07:47] LABS: HEMATOCRIT 48.9 % (35.4-49); HEMOGLOBIN 16.2 GM/dL (11.7-16.9); MCH 30.3 pg (25.7-33.7); MCHC 33.1 g/dl (32.0-35.9); MEAN CELL VOLUME 91.6 fl (80-96); MEAN PLT VOLUME 8.8 fl (7.5-11.1); RBC 5.34 M/mm3 (4.00-5.60); RDW 14.8 % (11.9-15.9); WHITE BLOOD COUNT 5.9 K/mm3 (4.0-10.0)
[2019-05-04 08:13] LABS: ALBUMIN 3.5 g/dl (3.4-5.0); BILIRUBIN,TOTAL 1.2 mg/dL (0.2-1); BLOOD UREA NITROGEN 10.6 mg/dL (7-18); CALCIUM 8.9 mg/dL (8.5-10.1); CREATININE 1.1 mg/dL (0.55-1.3); TOT PROT 6.6 g/dl (6.4-8.2)
[2019-05-04 09:14] LABS: PLATELET COUNT 179 K/MM3 (134-434)
[2019-05-04] MEDS: FOLIC ACID 1 MG TABLET (FP) PO SCH (11:02)
[2019-05-04] MEDS: THIAMINE HCL 100 MG TABLET (FP) PO SCH (11:02)
[2019-05-04] MEDS: chlordiazePOXIDE 5 MG CAPSULE PO SCH ×2 (13:28→21:38)
--- NOTE | 2019-05-04 17:37 | PN ---
Physical Exam: SUBJECTIVE: Patient seen and examined by the bedside. OBJECTIVE: Vital Signs Period Temp Pulse Resp BP Sys/Zhang Pulse Ox Last 24 Hr 97.8 F-97.9 F 51-67 18-18 114-144/70-96 100 GENERAL: The patient is awake, alert, and fully oriented, in no acute distress. HEAD: Normal with no signs of trauma. EYES: PERRL, extraocular movements intact, sclera anicteric, conjunctiva clear. No ptosis. NECK: Trachea midline, full range of motion, supple. LUNGS: Breath sounds equal, clear to auscultation bilaterally, no wheezes, no crackles, no accessory muscle use. HEART: Regular rate and rhythm, S1, S2 without murmur, rub or gallop. ABDOMEN: Soft, nontender, nondistended, normoactive bowel sounds, no guarding, no rebound, no hepatosplenomegaly, no masses. EXTREMITIES: 2+ pulses, warm, well-perfused, no edema. PSYCH: Normal mood, normal affect. SKIN: Warm, dry, normal turgor, no rashes or lesions noted Laboratory Results - last 24 hr 05/04/19 05/04/19 06:20 06:20 WBC 5.9 RBC 5.34 Hgb 16.2 Hct 48.9 MCV 91.6 MCH 30.3 MCHC 33.1 RDW 14.8 Plt Count 179 MPV 8.8 Sodium 142 Potassium 4.0 Chloride 108 H Carbon Dioxide 27 Anion Gap 7 L BUN 10.6 Creatinine 1.1 Est GFR (CKD-EPI)AfAm 98.87 Est GFR (CKD-EPI)NonAf 85.31 Random Glucose 82 Calcium 8.9 Total Bilirubin 1.2 H AST 119 H ALT 175 H Alkaline Phosphatase 64 Total Protein 6.6 Albumin 3.5 Active Medications Generic Name Dose Route Start Last Admin Trade Name Freq PRN Reason Stop Dose Admin Chlordiazepoxide HCl 10 mg 05/05/19 00:00 Librium - PO 05/05/19 23:59 Q12H PRN Signs/symptoms of Withdrawal Chlordiazepoxide HCl 10 mg 05/02/19 13:26 Librium - PO 05/04/19 23:59 Q8H PRN Signs/symptoms of Withdrawal Chlordiazepoxide HCl 15 mg 05/04/19 13:00 05/04/19 13:28 Librium - PO 05/05/19 05:01 15 mg Q8H DAVID Administration Chlordiazepoxide HCl 10 mg 05/05/19 13:00 Librium - PO 05/06/19 05:01 Q8H DAVID Chlordiazepoxide HCl 10 mg 05/06/19 13:00 Librium - PO 05/06/19 13:01 ONCE ONE Folic Acid 1 mg 05/02/19 10:00 05/04/19 11:02 Folic Acid - PO 1 mg DAILY DAVID Administration Thiamine HCl 100 mg 05/02/19 10:00 05/04/19 11:02 Vitamin B1 - PO 100 mg DAILY DAVID Administration ASSESSMENT/PLAN: 38 year old male with PMH of etoh abuse presents to the ED with complaints feeling jittery and nauseated after consuming 1 liter of alcohol per day for the past 7 days. # ETOH withdrawal: -Librium protocol started (05/02), continue till -Folic acid, Thiamine started -Transfer to [facility] discussed, patient not interested # Alcoholic hepatitis: -AST: 322 to 159 to 119 -ALT 242 to 184 to 175 #Dehydration: - Ringers Lactate administered, now stopped Visit type - Emergency Visit Emergency Visit: Yes ED Registration Date: 05/01/19 Care time: The patient presented to the Emergency Department on the above date and was hospitalized for further evaluation of their emergent condition. - New Patient This patient is new to me today: No - Critical Care Critical Care patient: No - Discharge Referral Referred to [facility] Med P.C.: No ATTENDING PHYSICIAN STATEMENT I saw and evaluated the patient. I reviewed the resident's note and discussed the case with the resident. I agree with the resident's findings and plan as documented. SUBJECTIVE: OBJECTIVE: ASSESSMENT AND PLAN:
--- NOTE | 2019-05-04 18:45 | PN ---
Teaching Attending Note Name of Resident: Toi Lockett ATTENDING PHYSICIAN STATEMENT I saw and evaluated the patient. I reviewed the resident's note and discussed the case with the resident. I agree with the resident's findings and plan as documented. SUBJECTIVE: No fever or chills. No MERIDA . no abd pain. OBJECTIVE: NAD. MMM CV: RRR, 2/[place] with no [place]. Lungs: CTAB Ext : No edema, no tremors Abd: soft, NT, ND , NL BS. Assessment/Plan: 38 y/o man with h/o binge drinking who presented with fatigue after binge drinking. he was found in ETOH withdrawal 1- ETOH withdrawal: -cont librium - cont folic and thiamine 2- Alcoholic hepatitis: LFTS improved 3- GHADA : resolved 4- Heart murmur: needs echo as out pt DVT PX: add heparin sq dispo : HLOC dc when he finished his detox
[2019-05-04] MEDS: HEPARIN NA (PORCINE) 5,000 UNITS/ML 1ML VIAL SQ SCH (21:39)
[2019-05-05] MEDS ORDERED: chlordiazePOXIDE 5 MG CAPSULE PO PRN
--- NOTE | 2019-05-05 07:32 | PN ---
Physical Exam: SUBJECTIVE: Patient seen and examined OBJECTIVE: Vital Signs Period Temp Pulse Resp BP Sys/Zhang Pulse Ox Last 24 Hr 97.8 F-98 F 60-96 18-20 120-140/60-93 99-99 GENERAL: The patient is awake, alert, and fully oriented, in no acute distress. HEAD: Normal with no signs of trauma. EYES: PERRL, extraocular movements intact, sclera anicteric, conjunctiva clear. No ptosis. NECK: Trachea midline, full range of motion, supple. LUNGS: Breath sounds equal, clear to auscultation bilaterally, no wheezes, no crackles, no accessory muscle use. HEART: Regular rate and rhythm, S1, S2 without murmur, rub or gallop. ABDOMEN: Soft, nontender, nondistended, normoactive bowel sounds, no guarding, no rebound, no hepatosplenomegaly, no masses. EXTREMITIES: 2+ pulses, warm, well-perfused, no edema. PSYCH: Normal mood, normal affect. SKIN: Warm, dry, normal turgor, no rashes or lesions noted Laboratory Results - last 24 hr 05/04/19 05/04/19 06:20 06:20 WBC 5.9 RBC 5.34 Hgb 16.2 Hct 48.9 MCV 91.6 MCH 30.3 MCHC 33.1 RDW 14.8 Plt Count 179 MPV 8.8 Sodium 142 Potassium 4.0 Chloride 108 H Carbon Dioxide 27 Anion Gap 7 L BUN 10.6 Creatinine 1.1 Est GFR (CKD-EPI)AfAm 98.87 Est GFR (CKD-EPI)NonAf 85.31 Random Glucose 82 Calcium 8.9 Total Bilirubin 1.2 H AST 119 H ALT 175 H Alkaline Phosphatase 64 Total Protein 6.6 Albumin 3.5 Active Medications Generic Name Dose Route Start Last Admin Trade Name Freq PRN Reason Stop Dose Admin Chlordiazepoxide HCl 10 mg 05/05/19 00:00 Librium - PO 05/05/19 23:59 Q12H PRN Signs/symptoms of Withdrawal Chlordiazepoxide HCl 10 mg 05/05/19 13:00 Librium - PO 05/06/19 05:01 Q8H DAVID Chlordiazepoxide HCl 10 mg 05/06/19 13:00 Librium - PO 05/06/19 13:01 ONCE ONE Folic Acid 1 mg 05/02/19 10:00 05/04/19 11:02 Folic Acid - PO 1 mg DAILY [facility] Administration Heparin Sodium (Porcine) 5,000 unit 05/04/19 22:00 05/04/19 21:39 Heparin - SQ 5,000 unit TID [facility] Administration Thiamine HCl 100 mg 05/02/19 10:00 05/04/19 11:02 Vitamin B1 - PO 100 mg DAILY [facility] Administration Current Medications Chlordiazepoxide HCl (Librium -) 10 mg PO Q12H PRN PRN Reason: Signs/symptoms of Withdrawal Stop: 05/05/19 23:59 Chlordiazepoxide HCl (Librium -) 10 mg PO Q8H [facility] Stop: 05/06/19 05:01 Chlordiazepoxide HCl (Librium -) 10 mg PO ONCE ONE Stop: 05/06/19 13:01 Folic Acid (Folic Acid -) 1 mg PO DAILY [facility] Last Admin: 05/04/19 11:02 Dose: 1 mg Heparin Sodium (Porcine) (Heparin -) 5,000 unit SQ TID [facility] Last Admin: 05/04/19 21:39 Dose: 5,000 unit Thiamine HCl (Vitamin B1 -) 100 mg PO DAILY [facility] Last Admin: 05/04/19 11:02 Dose: 100 mg ASSESSMENT/PLAN: 38 year old male with PMH of etoh abuse presents to the ED with complaints feeling jittery and nauseated after consuming 1 liter of alcohol per day for the past 7 days. # ETOH withdrawal: -Librium protocol started (05/02), continue till -Folic acid, Thiamine started -Transfer to [facility] discussed, patient not interested # Alcoholic hepatitis: -AST: 322 to 159 to 119 -ALT 242 to 184 to 175 #Dehydration: - Ringers Lactate administered, now stopped #DVT Prophylaxis -Heparin ATTENDING PHYSICIAN STATEMENT I saw and evaluated the patient. I reviewed the resident's note and discussed the case with the resident. I agree with the resident's findings and plan as documented. SUBJECTIVE: OBJECTIVE: ASSESSMENT AND PLAN:
[2019-05-05 08:58] LABS: HEMATOCRIT 47.3 % (35.4-49); HEMOGLOBIN 15.5 GM/dL (11.7-16.9); MCH 30.2 pg (25.7-33.7); MCHC 32.8 g/dl (32.0-35.9); MEAN CELL VOLUME 92.1 fl (80-96); MEAN PLT VOLUME 8.6 fl (7.5-11.1); PLATELET COUNT 163 K/MM3 (134-434); RBC 5.14 M/mm3 (4.00-5.60); RDW 14.6 % (11.9-15.9); WHITE BLOOD COUNT 5.8 K/mm3 (4.0-10.0)
[2019-05-05 09:18] LABS: ALBUMIN 3.3 g/dl (3.4-5.0); BILIRUBIN,TOTAL 0.6 mg/dL (0.2-1); CALCIUM 8.9 mg/dL (8.5-10.1); CREATININE 1.4 mg/dL (0.55-1.3); TOT PROT 6.2 g/dl (6.4-8.2)
--- NOTE | 2019-05-05 09:34 | PN ---
Teaching Attending Note Name of Resident: Toi Lockett ATTENDING PHYSICIAN STATEMENT I saw and evaluated the patient. I reviewed the resident's note and discussed the case with the resident. I agree with the resident's findings and plan as documented. SUBJECTIVE: Patient is comfortable with no nausea distress. OBJECTIVE: Vital Signs Temperature 97.8 F 05/05/19 04:22 Pulse Rate 67 05/05/19 04:22 Respiratory Rate 20 05/05/19 04:22 Blood Pressure 140/93 05/05/19 04:22 O2 Sat by Pulse Oximetry (%) 99 05/04/19 21:00 GENERAL: The patient is awake, alert, and fully oriented, in no acute distress. HEAD: Normal with no signs of trauma. EYES: PERRL, extraocular movements intact, sclera anicteric, conjunctiva clear. ENT: Ears normal, oropharynx clear without exudates, moist mucous membranes. NECK: Trachea midline, full range of motion, supple. LUNGS: Breath sounds equal, clear to auscultation bilaterally, no wheezes, no crackles, no accessory muscle use. HEART: Regular rate and rhythm, S1, S2 without murmur, rub or gallop. ABDOMEN: Soft, nontender, nondistended, normoactive bowel sounds, no guarding, no rebound, no hepatosplenomegaly, no masses. EXTREMITIES: 2+ pulses, warm, well-perfused, no edema. NEUROLOGICAL: Cranial nerves II through XII grossly intact. Normal speech, gait not observed. PSYCH: Normal mood, normal affect. SKIN: Warm, dry, normal turgor, no rashes or lesions noted CBCD WBC 5.8 K/mm3 (4.0-10.0) 05/05/19 08:00 RBC 5.14 M/mm3 (4.00-5.60) 05/05/19 08:00 Hgb 15.5 GM/dL (11.7-16.9) 05/05/19 08:00 Hct 47.3 % (35.4-49) 05/05/19 08:00 MCV 92.1 fl (80-96) 05/05/19 08:00 MCHC 32.8 g/dl (32.0-35.9) 05/05/19 08:00 RDW 14.6 % (11.9-15.9) 05/05/19 08:00 Plt Count 163 K/MM3 (134-434) 05/05/19 08:00 MPV 8.6 fl (7.5-11.1) 05/05/19 08:00 CMP Sodium 142 mmol/L (136-145) 05/05/19 08:00 Potassium 4.0 mmol/L (3.5-5.1) 05/05/19 08:00 Chloride 108 mmol/L (98-107) H 05/05/19 08:00 Carbon Dioxide 30 mmol/L (21-32) 05/05/19 08:00 Anion Gap 4 MMOL/L (8-16) L 05/05/19 08:00 BUN 15.0 mg/dL (7-18) 05/05/19 08:00 Creatinine 1.4 mg/dL (0.55-1.3) H 05/05/19 08:00 Random Glucose 96 mg/dL (74-106) 05/05/19 08:00 Calcium 8.9 mg/dL (8.5-10.1) 05/05/19 08:00 Total Bilirubin 0.6 mg/dL (0.2-1) 05/05/19 08:00 AST 61 U/L (15-37) H 05/05/19 08:00 ALT 133 U/L (13-61) H 05/05/19 08:00 Alkaline Phosphatase 71 U/L (45-117) 05/05/19 08:00 Total Protein 6.2 g/dl (6.4-8.2) L 05/05/19 08:00 Albumin 3.3 g/dl (3.4-5.0) L 05/05/19 08:00 Current Medications Generic Name Dose Route Start Last Admin Trade Name Freq PRN Reason Stop Dose Admin Chlordiazepoxide HCl 10 mg 05/05/19 00:00 Librium - PO 05/05/19 23:59 Q12H PRN Signs/symptoms of Withdrawal Chlordiazepoxide HCl 10 mg 05/05/19 13:00 Librium - PO 05/06/19 05:01 Q8H [facility] Chlordiazepoxide HCl 10 mg 05/06/19 13:00 Librium - PO 05/06/19 13:01 ONCE ONE Folic Acid 1 mg 05/02/19 10:00 05/04/19 11:02 Folic Acid - PO 1 mg DAILY DAVID Administration Heparin Sodium (Porcine) 5,000 unit 05/04/19 22:00 05/04/19 21:39 Heparin - SQ 5,000 unit TID DAVID Administration Thiamine HCl 100 mg 05/02/19 10:00 05/04/19 11:02 Vitamin B1 - PO 100 mg DAILY DAVID Administration ASSESSMENT AND PLAN: Patient is a 38yo male with no significant PMHx ,presented after binge drinking and was found to be in ETOH withdrawal # ETOH withdrawal: cont librium last dose tonight , continue with thiamine # Alcoholic hepatitis: LFTS improved # GHADA : resolved s/p IVF will discharge patient home after the last dose of Librium today.
[2019-05-05] MEDS: FOLIC ACID 1 MG TABLET (FP) PO SCH (09:57)
[2019-05-05] MEDS: THIAMINE HCL 100 MG TABLET (FP) PO SCH (09:58)
[2019-05-05] MEDS ORDERED: chlordiazePOXIDE 5 MG CAPSULE PO SCH (13:00)
[2019-05-05] MEDS: HEPARIN NA (PORCINE) 5,000 UNITS/ML 1ML VIAL SQ SCH ×2 (13:09→13:11)
--- NOTE | 2019-05-05 13:49 | DS ---
Physical Exam: SUBJECTIVE: Patient seen and examined by the bedside. OBJECTIVE: Vital Signs Period Temp Pulse Resp BP Sys/Zhang Pulse Ox Last 24 Hr 97.8 F-98.8 F 60-96 18-20 126-140/60-93 99-99 PHYSICAL EXAM GENERAL: The patient is awake, alert, and fully oriented, in no acute distress. HEAD: Normal with no signs of trauma. EYES: PERRL, extraocular movements intact, sclera anicteric, conjunctiva clear. No ptosis. NECK: Trachea midline, full range of motion, supple. LUNGS: Breath sounds equal, clear to auscultation bilaterally, no wheezes, no crackles, no accessory muscle use. HEART: Regular rate and rhythm, S1, S2 without murmur, rub or gallop. ABDOMEN: Soft, nontender, nondistended, normoactive bowel sounds, no guarding, no rebound, no hepatosplenomegaly, no masses. EXTREMITIES: 2+ pulses, warm, well-perfused, no edema, no tremors PSYCH: Normal mood, normal affect. SKIN: Warm, dry, normal turgor, no rashes or lesions noted LABS Laboratory Results - last 24 hr 05/05/19 05/05/19 08:00 08:00 WBC 5.8 RBC 5.14 Hgb 15.5 Hct 47.3 MCV 92.1 MCH 30.2 MCHC 32.8 RDW 14.6 Plt Count 163 MPV 8.6 Sodium 142 Potassium 4.0 Chloride 108 H Carbon Dioxide 30 Anion Gap 4 L BUN 15.0 Creatinine 1.4 H Est GFR (CKD-EPI)AfAm 73.86 Est GFR (CKD-EPI)NonAf 63.73 Random Glucose 96 Calcium 8.9 Total Bilirubin 0.6 AST 61 H ALT 133 H Alkaline Phosphatase 71 Total Protein 6.2 L Albumin 3.3 L HOSPITAL COURSE: Date of Admission:05/01/19 Date of Discharge: 05/05/19 The patient is a 38 year old male with PMH of occasional binge drinking who presented to the ER with complaints of feeling jittery and nauseated after consuming 1 liter of alcohol per day for the past 7 days. EKG was normal, and abdominal USG was normal with the exception of a polyp on the gall bladder. AST (322) and ALT (242) were high on presentation, but have now decreased to 119 and 175 respectively. He was administered folic acid and thiamine, R/L for dehydration, and started on Librium protocol. Patient was not interested in being transferred to [facility] He completed 4th day of Librium and has been stable without symptoms for the past 2 days. Minutes to complete discharge: 20 Discharge Summary Reason For Visit: ELEVATED CREATINE KINASE LEVEL,ALCOHOL WITHDRAWAL Current Active Problems Elevated LFTs (Acute) Elevated creatine kinase (Acute) - Instructions Diet, Activity, Other Instructions: You were admitted to the hospital for withdrawal symptoms after excessive alcohol consumption. While you were at the hospital, we checked your heart (EKG) and performed a scan of your abdomen (Ultrasound). The EKG was normal. The abdominal scan was normal, with the exception of a small appendage on your gall bladder. This is not usually worrisome, but we will refer you to our [facility] for follow-up to rule out anything serious. While you were at the hospital, we also gave you medicine for your nausea and tremors. This medicine is important to control symptoms, as well as to prevent seizures. Since you no longer have symptoms, you are now being discharged. Follow up 1. Please make an appointment with your PCP (Primary Care Physician) within one week. 2. Please make an appointment with our Java Developer Dr. Ousmane Perez Additional info Please return to the Emergency Department if you have any of the following: Nausea, vomiting, diarrhea, difficulty breathing, bleeding that will not stop, or persistent headache Referrals: Padilla Sanchez MD [Staff Physician] - Disposition: HOME This patient is new to me today: No Emergency Visit: Yes ED Registration Date: 05/01/19 Care time: The patient presented to the Emergency Department on the above date and was hospitalized for further evaluation of their emergent condition. Critical Care patient: No - Discharge Referral Referred to [facility] Yes Physician Referral: Darius Perez DO (GI) (Gallbladder Polyp) ATTENDING PHYSICIAN STATEMENT I saw and evaluated the patient. I reviewed the resident's note and discussed the case with the resident. I agree with the resident's findings and plan as documented. SUBJECTIVE: OBJECTIVE: ASSESSMENT AND PLAN:
[2019-05-05 15:44] VITALS: TEMP 98
[2019-05-05] MEDS ORDERED: chlordiazePOXIDE 5 MG CAPSULE ONE (16:33)
[2019-05-05] MEDS ORDERED: chlordiazePOXIDE HCL 10 MG CAPSULE PO ONE (17:00)
[2019-05-05 17:44] VITALS: BP 116/75; PULSE 78
[2019-05-06] MEDS ORDERED: chlordiazePOXIDE 5 MG CAPSULE PO ONE (13:00)
== END 2019-05-05 18:39 | disposition home or self-care (01) | DRG 897 ==
LOC: JER 18:33 → JERBED 21:16 → J8W 23:07
PROVIDERS: ADMIT Internal Medicine; ATTEND Internal Medicine
PROC: HZ2ZZZZ Detoxification Services for Substance Abuse Treatment (ICD-10-PCS; principal; 2019-05-01)
DX: F10.239 Alcohol dependence with withdrawal, unspecified (principal); N17.9 Acute kidney failure, unspecified; E86.0 Dehydration; K70.10 Alcoholic hepatitis without ascites; R01.1 Cardiac murmur, unspecified; D72.1 Eosinophilia; F17.210 Nicotine dependence, cigarettes, uncomplicated
CPT/HCPCS: 36415; 76705-TC; 80053; 80307; 81003; 83690; 83735; 84100; 84443; 85025; 85027; 85610; 93005; 93010; 99285-25; J1644; J7030

== ENCOUNTER 2019-10-19 13:50 | Emergency (ER) | payer OTHER ==
[2019-10-19 14:05] VITALS: BMI 34.4
[2019-10-19] MEDS ORDERED: FOLIC ACID INJECTION - 1 MG, THIAMINE HCL 100 MG, MULTIVIT INJECTION ADULT 10 ML in SOD... IVPB ONE (14:39)
--- NOTE | 2019-10-19 14:47 | PDOC ---
History of Present Illness - General Chief Complaint: Alcohol intoxication Stated Complaint: DEHYDRATED Time Seen by Provider: 10/19/19 14:38 History Source: Patient Exam Limitations: No Limitations - History of Present Illness Initial Comments: 10/19/19 14:41 39 y/o male presents to the ED For evaluation of possible dehydration. Patient states his been drinking heavily for the past 4 days and is concerned for his health. Patient denies any chest pain or head injury patient states has been functional going to work and drinking in the evenings. Patient states last drink was about 3 hours ago which consisted of a Heineken. Is this a multiple visit Asthma Patient?: No Timing/Duration: unsure Severity: mild Associated Symptoms: reports: loss of appetite, weakness (mild generalized) Past History - Travel Traveled outside of the country in the last 30 days: No Close contact w/someone who was outside of country & ill: No - Past Medical History Allergies/Adverse Reactions: Allergies Allergy/AdvReac Type Severity Reaction Status Date / Time No Known Allergies Allergy Verified 10/19/19 14:05 Home Medications: Ambulatory Orders NK [No Known Home Medication] 10/19/19 COPD: No GI Disorders: Yes (C Diff in 2018) - Psycho Social/Smoking Cessation Hx Smoking History: Unknown if ever smoked Have you smoked in the past 12 months: No Number of Cigarettes Smoked Daily: 20 'Breaking Loose' booklet given: 05/02/19 Hx Alcohol Use: No Drug/Substance Use Hx: No Substance Use Type: None Hx Substance Use Treatment: No Patient Lives Alone: No Lives with/in: spouse/SO Review of Systems - Review of Systems Able to Perform ROS?: No Is the patient limited Latvian proficient: No Constitutional: Yes: Weakness (mild) HEENTM: No: Symptoms Reported Respiratory: No: Symptoms reported Cardiac (ROS): No: Symptoms Reported ABD/GI: No: Symptoms Reported : No: Symptoms Reported Musculoskeletal: No: Symptoms Reported Integumentary: No: Symptoms Reported Neurological: No: Symptoms reported Endocrine: No: Symptoms Reported Hematologic/Lymphatic: No: Symptoms Reported *Physical Exam - Vital Signs Last Vital Signs Temp Pulse Resp BP Pulse Ox 97.9 F 109 H 16 131/82 100 10/19/19 14:03 10/19/19 14:03 10/19/19 14:03 10/19/19 14:03 10/19/19 14:03 - Physical Exam General Appearance: Yes: Nourished, Appropriately Dressed. No: Apparent Distress HEENT: positive: EOMI, POLO, TMs Normal, Pharynx Normal. negative: Pale Conjunctivae Neck: positive: Supple Respiratory/Chest: positive: Lungs Clear, Normal Breath Sounds. negative: Respiratory Distress, Accessory Muscle Use Cardiovascular: positive: Regular Rhythm, Tachycardia. negative: Murmur Gastrointestinal/Abdominal: positive: Soft. negative: Tenderness Extremity: positive: Normal Inspection Integumentary: positive: Normal Color, Warm, Moist Neurologic: positive: Motor Strength 5/5 (ambulatory) ED Treatment Course - LABORATORY CBC & Chemistry Diagram: 10/19/19 14:45 10/19/19 14:45 Medical Decision Making - Medical Decision Making 10/19/19 14:27 Chief complaint: Patient with alcohol abuse requesting evaluation of labs since he feels exhausted due to his binge drinking for the past 3 to 4 days. Exam: Patient slightly tachycardic alcohol breath but not intoxicated otherwise normal physical exam. Plan: Labs, IV fluids banana bag 10/19/19 17:32 Laboratory Tests 10/19/19 10/19/19 10/19/19 14:45 14:45 14:45 WBC 5.5 Hgb 15.5 Hct 45.2 Absolute Neuts (auto) 3.3 Neutrophils % 60.0 Sodium 131 L Potassium 4.2 Chloride 93 L Carbon Dioxide 28 Anion Gap 11 BUN 9.8 Creatinine 1.0 Est GFR (CKD-EPI)AfAm 110.17 Est GFR (CKD-EPI)NonAf 95.05 Random Glucose 108 H Calcium 9.6 Magnesium 2.0 Total Bilirubin 0.8 AST 107 H ALT 93 H Alkaline Phosphatase 66 Total Protein 8.2 Albumin 4.3 Alcohol, Quantitative 227.1 H States feeling better. Patient states he is going to go to his mother's and utilize outpatient resources such as AA meetings Discharge - Discharge Information Problems reviewed: Yes Clinical Impression/Diagnosis: Alcohol abuse Condition: Improved Disposition: HOME - Follow up/Referral - Patient Discharge Instructions Patient Printed Discharge Instructions: DI for Alcohol Abuse Additional Instructions: Please avoid using alcohol and keep yourself busy either with work, the gym, reading, being with supportive friends or other healthy outlets - Post Discharge Activity
[2019-10-19 15:18] LABS: BASO % 1.8 % (0-2.0); EOS % 0.5 % (0-4.5); HEMATOCRIT 45.2 % (35.4-49); HEMOGLOBIN 15.5 GM/dL (11.7-16.9); LYMPH % 28.9 % (8-40); MCH 30.3 pg (25.7-33.7); MCHC 34.2 g/dl (32.0-35.9); MEAN CELL VOLUME 88.6 fl (80-96); MONO % 8.8 % (3.8-10.2); PLATELET COUNT 258 K/MM3 (134-434); RBC 5.11 M/mm3 (4.00-5.60); RDW 13.9 % (11.9-15.9); WHITE BLOOD COUNT 5.5 K/mm3 (4.0-10.0)
[2019-10-19 15:54] LABS: ALBUMIN 4.3 g/dl (3.4-5.0); BILIRUBIN,TOTAL 0.8 mg/dL (0.2-1); BLOOD UREA NITROGEN 9.8 mg/dL (7-18); CALCIUM 9.6 mg/dL (8.5-10.1); POTASSIUM 4.2 mmol/L (3.5-5.1); TOT PROT 8.2 g/dl (6.4-8.2)
[2019-10-19 18:00] VITALS: BP 154/88; PULSE 105; TEMP 98.3
== END 2019-10-19 18:00 | disposition home or self-care (01) ==
LOC: JER 13:50
PROC: 3E033GC Introduction of Other Therapeutic Substance into Peripheral Vein, Percutaneous Approach (ICD-10-PCS; principal; 2019-10-19)
DX: F10.10 Alcohol abuse, uncomplicated (principal); Z87.891 Personal history of nicotine dependence
CPT/HCPCS: 36415; 80053; 80307; 83735; 85025; 99284-25; J7030

== ENCOUNTER 2019-10-20 13:15 | Emergency (ER) | payer OTHER ==
[2019-10-20 13:26] VITALS: BMI 35.2
[2019-10-20] MEDS ORDERED: SODIUM CHLORIDE 1,000 ML IV STA (13:29)
[2019-10-20] MEDS ORDERED: diazePAM CARPU-JECT 10 MG/2 ML DISP.SYRIN IVPUSH ONE (13:33)
--- NOTE | 2019-10-20 13:33 | PDOC ---
History of Present Illness - General History Source: Patient - History of Present Illness Timing/Duration: other <Kane Patterson - Last Filed: 10/20/19 15:23> <Avelino Justin - Last Filed: 10/23/19 17:40> - General Chief Complaint: Psychiatric Stated Complaint: ANXIETY Time Seen by Provider: 10/20/19 13:24 Past History - Past Medical History COPD: No GI Disorders: Yes (C Diff in 2018) - Immunization History Immunization Up to Date: Yes - Psycho Social/Smoking Cessation Hx Smoking History: Never smoked Have you smoked in the past 12 months: No Number of Cigarettes Smoked Daily: 20 'Breaking Loose' booklet given: 05/02/19 Hx Alcohol Use: Yes (3AM TODAY) Drug/Substance Use Hx: No Substance Use Type: None Hx Substance Use Treatment: No <Kane Patterson - Last Filed: 10/20/19 15:23> <Avelino Justin - Last Filed: 10/23/19 17:40> - Past Medical History Allergies/Adverse Reactions: Allergies Allergy/AdvReac Type Severity Reaction Status Date / Time No Known Allergies Allergy Verified 10/20/19 17:19 Home Medications: Ambulatory Orders NK [No Known Home Medication] 10/19/19 Review of Systems - Review of Systems Constitutional: No: Chills, Fever Respiratory: No: Shortness of Breath Cardiac (ROS): No: Chest Pain, Lightheadedness, Palpitations, Syncope ABD/GI: No: Diarrhea, Nausea, Vomiting, Abdominal cramping <Kane Patterson - Last Filed: 10/20/19 15:23> *Physical Exam - Vital Signs Last Vital Signs Temp Pulse Resp BP Pulse Ox 98.0 F 113 H 18 152/88 96 10/20/19 13:16 10/20/19 13:16 10/20/19 13:16 10/20/19 13:16 10/20/19 13:16 - Physical Exam General Appearance: Yes: Appropriately Dressed. No: Apparent Distress HEENT: positive: Normal Voice Neck: positive: Supple Respiratory/Chest: positive: Lungs Clear, Labored Respiration. negative: Respiratory Distress Cardiovascular: positive: S1, S2, Tachycardia Gastrointestinal/Abdominal: positive: Soft. negative: Tender Integumentary: positive: Dry, Warm Neurologic: positive: Fully Oriented, Alert, Normal Mood/Affect, Other (no asterixis) <Kane Patterson - Last Filed: 10/20/19 15:23> - Vital Signs Last Vital Signs Temp Pulse Resp BP Pulse Ox 98.6 F 96 H 20 145/85 98 10/20/19 14:41 10/20/19 15:38 10/20/19 15:38 10/20/19 15:38 10/20/19 15:38 <Avelino Justin - Last Filed: 10/23/19 17:40> ED Treatment Course - LABORATORY CBC & Chemistry Diagram: 10/20/19 13:45 10/20/19 13:45 - RADIOLOGY Radiology Studies Ordered: Category Date Time Status CHEST PA & LAT [RAD] Stat Radiology 10/20/19 13:28 Ordered <Kane Patterson - Last Filed: 10/20/19 15:23> - LABORATORY CBC & Chemistry Diagram: 10/20/19 13:45 10/20/19 13:45 - ADDITIONAL ORDERS Additional order review: 10/20/19 13:45 RBC 5.18 MCV 89.1 MCHC 34.1 RDW 14.3 MPV 8.0 Neutrophils % 47.3 D Lymphocytes % 36.7 D Monocytes % 12.1 H Eosinophils % 2.6 D Basophils % 1.3 - Medications Given in the ED: ED Medications Discontinued Medications Generic Name Dose Route Start Last Admin Trade Name Freq PRN Reason Stop Dose Admin Diazepam 10 mg 10/20/19 13:33 10/20/19 13:53 Valium Injection - IVPUSH 10/20/19 13:34 10 mg ONCE ONE Administration Sodium Chloride 1,000 mls @ 1,000 mls/hr 10/20/19 13:29 10/20/19 13:49 Normal Saline - IV 10/20/19 14:28 1,000 mls/hr ASDIR STA Administration Folic Acid 1 mg/ Thiamine HCl 1,000 mls @ 125 mls/hr 10/20/19 13:34 10/20/19 14:37 100 mg/ Multivitamins/Minerals IVPB 10/20/19 21:33 125 mls/hr 10 ml/ Sodium Chloride ONCE ONE Administration <Avelino Justin - Last Filed: 10/23/19 17:40> Medical Decision Making - Medical Decision Making 10/20/19 13:33 39 yo M, h/o alcohol abuse, here requesting inpatient detox. Per patient continues to drink especially given multiple stressors at home most notably constant fighting with his . Also states he has been unable to sleep for the past 4 days. Last alcohol intake was this a.m. Denies illicit drug use. Denies SI/HI. Patient states he feels as he is as if he is withdrawing now. Patient has had withdrawals in the past but denies seizures, hallucination or delirium tremens. Of note, patient was admitted for alcohol withdrawal almost 1 year ago where LFTs were found to be elevated. Patient was offered inpatient detox at [facility] but declined admission then see exam ETOH abuse req inpt detox Possible mild w/drawal now given HR 113, last intake this am -IVF -valium -med clearance -transfer to [facility] 10/20/19 13:41 Spoke to admitting physician at [facility] who states there are inpatient beds available and that we can send patient over once med clearance is completed 10/20/19 15:06 Labs remarkable for alcohol level of 217 with elevated LFTs, similar to in the past. EKG with sinus tach with some PVCs as discussed with ED attending. Repeat BP 158/90 w/ HR 98. Pt reports feeling significantly better at this time. Will transfer to [facility] at this time <Kane Patterson - Last Filed: 10/20/19 15:23> - Medical Decision Making 10/23/19 17:40 I reviewed the case of the mid-level practitioner and was available for consultation while in the emergency department <Avelino Justin - Last Filed: 10/23/19 17:40> Discharge - Discharge Information Problems reviewed: Yes <Kane Patterson - Last Filed: 10/20/19 15:23> <Avelino Justin - Last Filed: 10/23/19 17:40> - Discharge Information Clinical Impression/Diagnosis: Alcohol abuse Condition: Stable Disposition: HOME
[2019-10-20] MEDS ORDERED: FOLIC ACID INJECTION - 1 MG, THIAMINE HCL 100 MG, MULTIVIT INJECTION ADULT 10 ML in SOD... IVPB ONE (13:34)
[2019-10-20] MEDS ORDERED: diazePAM CARPU-JECT 10 MG/2 ML DISP.SYRIN ONE (13:38)
[2019-10-20 14:07] LABS: EPI CELLS 1.5 /HPF (0-5/HPF); HYALINE CASTS 3 /lpf (0-8); URINE APPEARANCE CLEAR; URINE BACTERIA 0.5 /hpf (NEGATIVE); URINE BILIRUBIN NEGATIVE (NEGATIVE); URINE COLOR YELLOW; URINE GLUCOSE (UA) NEGATIVE (NEGATIVE); URINE KETONE TRACE (NEGATIVE); URINE LEUK ESTERASE NEGATIVE (NEGATIVE); URINE NITRITE NEGATIVE (NEGATIVE); URINE PROTEIN 1+ (NEGATIVE); URINE RBC 3 /hpf (0-4); URINE WBC 1 /hpf (0-5)
[2019-10-20 14:13] LABS: COCAINE, UR NEGATIVE ng/ml (CUTOFF=300); METHADONE, UR NEGATIVE ng/ml (CUTOFF=300); OPIATES, URI NEGATIVE ng/ml (CUTOFF=300); PHENCYCLIDINE,URINE NEGATIVE ng/ml (CUTOFF=25); URINE AMPHETAMINES NEGATIVE ng/ml (CUTOFF=500); URINE BARBITURATES NEGATIVE ng/ml (CUTOFF=200); URINE BENZODIAZEPINES NEGATIVE ng/ml (CUTOFF=200)
[2019-10-20 14:29] LABS: BASO % 1.3 % (0-2.0); EOS % 2.6 % (0-4.5); HEMATOCRIT 46.1 % (35.4-49); HEMOGLOBIN 15.7 GM/dL (11.7-16.9); LYMPH % 36.7 % (8-40); MCH 30.3 pg (25.7-33.7); MCHC 34.1 g/dl (32.0-35.9); MEAN CELL VOLUME 89.1 fl (80-96); MONO % 12.1 % (3.8-10.2); NEUT % 47.3 % (42.8-82.8); PLATELET COUNT 268 K/MM3 (134-434); RBC 5.18 M/mm3 (4.00-5.60); RDW 14.3 % (11.9-15.9); WHITE BLOOD COUNT 4.3 K/mm3 (4.0-10.0)
[2019-10-20 14:43] VITALS: TEMP 98.6
[2019-10-20 14:54] LABS: ALBUMIN 4.2 g/dl (3.4-5.0); BILIRUBIN,TOTAL 0.9 mg/dL (0.2-1); BLOOD UREA NITROGEN 10.6 mg/dL (7-18); CALCIUM 9.2 mg/dL (8.5-10.1); POTASSIUM 4.2 mmol/L (3.5-5.1)
[2019-10-20 15:39] VITALS: BP 145/85; PULSE 96
--- NOTE | 2019-10-21 11:52 | EKG ---
Test Reason : Blood Pressure : / mmHG Vent. Rate : 105 BPM Atrial Rate : 105 BPM P-R Int : 164 ms QRS Dur : 108 ms QT Int : 358 ms P-R-T Axes : 063 056 066 degrees QTc Int : 473 ms SINUS TACHYCARDIA WITH PREMATURE SUPRAVENTRICULAR COMPLEXES AND WITH OCCASIONAL PREMATURE VENTRICULAR COMPLEXES POSSIBLE LEFT ATRIAL ENLARGEMENT BORDERLINE ECG WHEN COMPARED WITH ECG OF 01-MAY-2019 19:31, PREMATURE SUPRAVENTRICULAR COMPLEXES ARE NOW PRESENT Confirmed by VIKTOR LEBLANC, RASHARD ([id number]) on 10/21/2019 11:51:47 AM Referred By: Confirmed By:RASHARD HOANG MD
== END 2019-10-20 15:39 | disposition home or self-care (01) ==
LOC: JER 13:15
PROC: 3E033NZ Introduction of Analgesics, Hypnotics, Sedatives into Peripheral Vein, Percutaneous Approach (ICD-10-PCS; principal; 2019-10-20)
PROC: 3E033GC Introduction of Other Therapeutic Substance into Peripheral Vein, Percutaneous Approach (ICD-10-PCS; 2019-10-20)
PROC: 3E0337Z Introduction of Electrolytic and Water Balance Substance into Peripheral Vein, Percutaneous Approach (ICD-10-PCS; 2019-10-20)
DX: F10.10 Alcohol abuse, uncomplicated (principal)
CPT/HCPCS: 36415; 71046-TC-FY; 80053; 80307; 81003; 85025; 93005; 93010; 99283-25; J7030

== ENCOUNTER 2019-10-20 16:27 | Inpatient (IN) | payer OTHER ==
[2019-10-20 17:29] VITALS: BMI 37.5
--- NOTE | 2019-10-20 18:08 | HP ---
CIWA Score Nausea/Vomitin-Mild Nausea/No Vomiting Muscle Tremors: 3 Anxiety: 2 Agitation: 3 Paroxysmal Sweats: 2 Orientation: 1-Uncertain about Date Tacttile Disturbances: 1-Very Mild Itch/Numbness Auditory Disturbances: 0-None Visual Disturbances: 0-None Headache: 1-Very Mild CIWA-Ar Total Score: 14 - Admission Criteria OASAS Guidelines: Admission for Medically Managed Detox: Requires at least one of the followin. CIWA greater than 12 2. Seizures within the past 24 hours 3. Delirium tremens within the past 24 hours 4. Hallucinations within the past 24 hours 5. Acute intervention needed for co occurring medical disorder 6. Acute intervention needed for co occurring psychiatric disorder 7. Severe withdrawal that cannot be handled at a lower level of care (continued vomiting, continued diarrhea, abnormal vital signs) requiring intravenous medication and/or fluids 8. Patient presents the following: CIWA greater than 12 Admission Criteria Met: Admission criteria met Admitting History and Physical - Smoking History Smoking history: Current every day smoker Have you smoked in the past 12 months: No Aproximately how many cigarettes per day: 2 - Alcohol/Substance Use Hx Alcohol Use: Yes (3AM TODAY) Admission ROS [facility] Chief Complaint: alcohol detox Allergies/Adverse Reactions: Allergies Allergy/AdvReac Type Severity Reaction Status Date / Time No Known Allergies Allergy Verified 10/20/19 17:19 History of Present Illness: 39 yo states has been binging on alcohol for the last 4 days. Went to [facility] ER today. Given IVF and a banana bag and a dose of Valium. Pt states he had a previous binge episode in April- hospitalized at [facility] and has been staying away from alcohol but restarted using alcohol in September and has been drinking " a lot for last the several days- 1L of liqour every 3 days. No h/o seizures. No DT"s. No medical problems. No no medications. Pt lives with and . DUR- no meds - Ebola screening Have you traveled outside of the country in the last 21 days: No (NN) Have you had contact with anyone from an Ebola affected area: No Do you have a fever: No - Review of Systems Constitutional: No Symptoms Reported, Changes in sleep (not sleeping since) EENT: reports: No Symptoms Reported Respiratory: reports: No Symptoms reported Cardiac: reports: No Symptoms Reported GI: reports: No Symptoms Reported : reports: No Symptoms Reported Musculoskeletal: reports: No Symptoms Reported Integumentary: reports: No Symptoms Reported Neuro: reports: No Symptoms reported Endocrine: reports: No Symptoms Reported Hematology: reports: No Symptoms Reported Psychiatric: reports: No Sypmtoms Reported Other Systems: Reviewed and Negative Patient History - Patient Medical History Hx Asthma: No Hx Chronic Obstructive Pulmonary Disease (COPD): No Hx Cardiac Disorders: No Hx Hypertension: No Hx Seizures: No Hx Diabetes: No Hx Gastrointestinal Disorders: Yes (C Diff in 2018) Hx Genitourinary Disorders: No Hx Sexually Transmitted Disorders: No Hx Renal Disease (ESRD): No Hx Depression: No Hx Suicide Attempt: No Hx Schizophrenia: No - Patient Surgical History Past Surgical History: No Hx Neurologic Surgery: No Hx Cataract Extraction: No Hx Cardiac Surgery: No Hx Lung Surgery: No Hx Breast Surgery: No Hx Breast Biopsy: No Hx Abdominal Surgery: No Hx Appendectomy: No Hx Cholecystectomy: No Hx Genitourinary Surgery: No Hx Section: No Hx Orthopedic Surgery: No Anesthesia Reaction: No - PPD History Previous Implant?: Yes Documented Results: Negative w/o proof - Smoking Cessation Smoking history: Current every day smoker Have you smoked in the past 12 months: No Aproximately how many cigarettes per day: 2 Hx Chewing Tobacco Use: No Initiated information on smoking cessation: Yes 'Breaking Loose' booklet given: 10/20/19 Admission Physical Exam BHS - Vital Signs Vital Signs: Vital Signs - 24 hr 10/20/19 17:17 Temperature 96.9 F L Pulse Rate 111 H Respiratory 18 Rate Blood Pressure 149/88 - Physical General Appearance: Yes: Within Normal Limits HEENTM: Yes: Within Normal Limits Respiratory: Yes: Within Normal Limits, Lungs Clear Neck: Yes: Within Normal Limits Cardiology: Yes: Within Normal Limits, Regular Rhythm, Regular Rate Abdominal: Yes: Within Normal Limits Genitourinary: Yes: Within Normal Limits Musculoskeletal: Yes: Within Normal Limits Extremities: Yes: Within Normal Limits Neurological: Yes: Within Normal Limits Integumentary: Yes: Within Normal Limits Lymphatic: Yes: Within Normal Limits - Diagnostic (1) Alcohol use disorder Current Visit: Yes Status: Acute (2) Elevated LFTs Current Visit: No Status: Acute Breathalyzer - Breathalyzer Breathalyzer: 0.107 Urine Drug Screen - Test Device Lot number: [id number] Expiration date: 05/19/21 - Control Is test valid?: Yes - Results Drug screen NEGATIVE: Yes Inpatient Rehab Admission - Rehab Decision to Admit Inpatient rehab admission?: No
[2019-10-20] MEDS ORDERED: MAGNESIUM HYDROX 2400MG/30ML ORAL SUSPENSION 30 ML CUP PO PRN (18:15)
[2019-10-20] MEDS ORDERED: IBUPROFEN 400 MG TABLET (FP) PO PRN (18:15)
[2019-10-20] MEDS ORDERED: chlordiazePOXIDE HCL 10 MG CAPSULE PO PRN (18:15)
[2019-10-20] MEDS ORDERED: BISMUTH SUBSALICYLATE 524 MG/30 ML UD PO PRN (18:15)
[2019-10-20] MEDS ORDERED: hydrOXYzine PAMOATE 25 MG CAPSULE (FP) PO PRN (18:15)
[2019-10-20] MEDS ORDERED: chlordiazePOXIDE HCL 25 MG CAPSULE PO ONE (18:15)
[2019-10-20] MEDS ORDERED: ACETAMINOPHEN 325 MG TABLET (FP) PO PRN ×2 (18:15)
[2019-10-20] MEDS ORDERED: MENTHOL/PHENOL 1 EACH UD MM PRN (18:15)
[2019-10-20] MEDS ORDERED: MAGNESIUM CITRATE 300 ML BOTTLE PO PRN (18:15)
[2019-10-20] MEDS ORDERED: ONDANSETRON *ODT* 4 MG TABLET SL PRN (18:15)
[2019-10-20] MEDS ORDERED: METHOCARBAMOL 500 MG TABLET PO PRN (18:15)
[2019-10-20] MEDS ORDERED: MAG HYDROX/AL HYDROX/SIMETH 30 ML UNIT-DOSE CUP PO PRN (18:15)
[2019-10-20] MEDS ORDERED: LORazepam 1 MG TABLET PO PRN (18:23)
[2019-10-20] MEDS ORDERED: LORazepam 2 MG TABLET PO ONE (18:49)
[2019-10-20] MEDS ORDERED: chlordiazePOXIDE HCL 25 MG CAPSULE PO SCH (21:00)
[2019-10-20] MEDS: THIAMINE HCL 100 MG TABLET (FP) PO SCH (22:30)
[2019-10-20] MEDS: MELATONIN 5 MG TABLETS PO PRN (22:30)
[2019-10-20] MEDS: LORazepam 2 MG TABLET PO SCH (22:30)
[2019-10-21] MEDS: LORazepam 2 MG TABLET PO SCH ×4 (05:45→22:11)
[2019-10-21] MEDS: PRENATAL VITAMINS W/ FOLIC ACID TABLET (FP) PO SCH (10:11)
--- NOTE | 2019-10-21 10:15 | PN ---
S CIWA - CIWA Score Nausea/Vomitin-No Nausea/No Vomiting Muscle Tremors: 2 Anxiety: 3 Agitation: 2 Paroxysmal Sweats: 3 Orientation: 0-Oriented Tacttile Disturbances: 0-None Auditory Disturbances: 0-None Visual Disturbances: 0-None Headache: 2-Mild CIWA-Ar Total Score: 12 BHS Progress Note (SOAP) Subjective: c/o sweats, anxiety, headache, and shakes. Objective: 10/21/19 10:15 Vital Signs 10/21/19 10/21/19 10/21/19 03:30 07:17 09:32 Temperature 98.2 F 98.2 F Pulse Rate 85 86 Respiratory 18 18 18 Rate Blood Pressure 132/96 142/68 Labs pending. Assessment: 10/21/19 10:16 AOX3, in no acute respiratory distress. Full ROM, ambulating in the unit. Withdrawal symptoms. Plan: continue detox.
[2019-10-21 10:26] LABS: ALBUMIN 3.7 g/dl (3.4-5.0); BLOOD UREA NITROGEN 9.5 mg/dL (7-18); CREATININE 1.1 mg/dL (0.55-1.3); POTASSIUM 4.2 mmol/L (3.5-5.1); TOT PROT 7.1 g/dl (6.4-8.2)
[2019-10-21] MEDS: THIAMINE HCL 100 MG TABLET (FP) PO SCH (22:11)
[2019-10-22] MEDS ORDERED: chlordiazePOXIDE 5 MG CAPSULE PO SCH (05:00)
[2019-10-22] MEDS: LORazepam 1 MG TABLET PO SCH ×4 (05:41→22:17)
--- NOTE | 2019-10-22 09:30 | PN ---
[facility] CIWA - CIWA Score Nausea/Vomitin-No Nausea/No Vomiting Muscle Tremors: 1-None Visible, but [place] Anxiety: 1-Mildly Anxious Agitation: 1-Slight > Activity Paroxysmal Sweats: No Perspiration Orientation: 0-Oriented Tacttile Disturbances: 0-None Auditory Disturbances: 0-None Visual Disturbances: 0-None Headache: 0-None Present CIWA-Ar Total Score: 3 BHS Progress Note (SOAP) Subjective: pt states feeling better- wants to go home tomorrow- has to go to work. Pt states he is feeling fine with detox protocol O:alert and oriented Vital Signs - 24 hr 10/21/19 10/21/19 10/21/19 09:32 12:53 17:08 Temperature 98.2 F 97.9 F 99.1 F Pulse Rate 86 81 84 Respiratory 18 18 18 Rate Blood Pressure 142/68 152/81 138/79 10/21/19 10/22/19 10/22/19 21:22 00:30 06:00 Temperature 99 F 97.7 F Pulse Rate 94 H 87 Respiratory 18 18 20 Rate Blood Pressure 154/93 130/54 L Laboratory Tests 10/21/19 10/21/19 08:00 08:50 Sodium 139 Potassium 4.2 Chloride 103 Carbon Dioxide 31 Anion Gap 5 L BUN 9.5 Creatinine 1.1 Est GFR (CKD-EPI)AfAm 98.18 Est GFR (CKD-EPI)NonAf 84.71 Random Glucose 94 Calcium 9.0 Total Bilirubin 1.0 AST 122 H ALT 102 H Alkaline Phosphatase 58 Total Protein 7.1 Albumin 3.7 RPR Titer Nonreactive AST/ALT- high- test results d/w pt a/p AUD: continue alcohol detox-
[2019-10-22] MEDS: PRENATAL VITAMINS W/ FOLIC ACID TABLET (FP) PO SCH (10:31)
[2019-10-22] MEDS: THIAMINE HCL 100 MG TABLET (FP) PO SCH (22:17)
[2019-10-22] MEDS: MELATONIN 5 MG TABLETS PO PRN (22:17)
[2019-10-23] MEDS ORDERED: LORazepam 0.5 MG TABLET PO PRN
[2019-10-23] MEDS ORDERED: chlordiazePOXIDE HCL 10 MG CAPSULE PO PRN
[2019-10-23] MEDS ORDERED: chlordiazePOXIDE HCL 10 MG CAPSULE PO SCH (05:00)
[2019-10-23] MEDS: LORazepam 0.5 MG TABLET PO SCH ×2 (06:30→10:15)
[2019-10-23 07:39] VITALS: BP 100/60; PULSE 70; TEMP 97.7
--- NOTE | 2019-10-23 09:34 | DS ---
[facility] Detox Discharge Summary Admission Date: 10/20/19 Discharge Date: 10/23/19 - History Present History: Alcohol Dependence Pertinent Past History: 39 yo states has been binging on alcohol- completed detox. Feeling fine. Wants to go back to work. will attend AA meetings. Considering medication assisted Rx with campral and/or REvia - Physical Exam Results Vital Signs: Vital Signs Temperature 97.7 F 10/23/19 07:39 Pulse Rate 70 10/23/19 07:39 Respiratory Rate 18 10/23/19 07:39 Blood Pressure 100/60 10/23/19 07:39 O2 Sat by Pulse Oximetry (%) - Treatment Hospital Course: Detox Protocol Followed, Detoxed Safely, Responded well, Discharged Condition Good - Medication Discharge Medications: Ambulatory Orders NK [No Known Home Medication] 10/19/19 - Diagnosis (1) Alcohol use disorder Current Visit: Yes Status: Acute (2) Elevated LFTs Current Visit: No Status: Acute
[2019-10-23] MEDS: PRENATAL VITAMINS W/ FOLIC ACID TABLET (FP) PO SCH (10:14)
[2019-10-24] MEDS ORDERED: LORazepam 0.5 MG TABLET PO ONE (05:00)
[2019-10-24] MEDS ORDERED: chlordiazePOXIDE HCL 10 MG CAPSULE PO ONE (05:00)
== END 2019-10-23 10:10 | disposition home or self-care (01) | DRG 897 ==
LOC: YASAS 16:27 → Y6N 18:40
PROVIDERS: ADMIT Allergy & Immunology; ATTEND Allergy & Immunology
PROC: HZ2ZZZZ Detoxification Services for Substance Abuse Treatment (ICD-10-PCS; principal; 2019-10-20)
DX: F10.20 Alcohol dependence, uncomplicated (principal); F17.210 Nicotine dependence, cigarettes, uncomplicated; R94.5 Abnormal results of liver function studies; Z86.19 Personal history of other infectious and parasitic diseases
CPT/HCPCS: 36415; 80053; 86593